=== PATIENT | female | born 1970 | race Caucasian/White ===

== ENCOUNTER 2024-03-13 09:30 | Outpatient (RCR) | payer OTHER, SELFPAY | END 2024-04-17 15:06 | disposition home or self-care (01) | LOC: HO.WCC 09:30 | PROVIDERS: PCP Internal Medicine; Visit Provider Surgery | DX: S90.46 Insect bite (nonvenomous) of toe (principal); W57.XXXD Bitten or stung by nonvenomous insect and other nonvenomous arthropods, subsequent encounter; Z87.2 Personal history of diseases of the skin and subcutaneous tissue | CPT/HCPCS: 11042; 99212 ==